=== PATIENT | female | born 1955 | race Caucasian/White ===

== ENCOUNTER 2024-06-30 10:02 | Outpatient (CLI) | payer MEDICARE | END 2024-06-30 10:03 | disposition home or self-care (01) | LOC: NAV RAD 10:02 | PROVIDERS: ATTEND Student in an Organized Health Care Education/Training Program | DX: M25.512 Pain in left shoulder (principal); M19.012 Primary osteoarthritis, left shoulder ==

== ENCOUNTER 2025-06-21 13:33 | Outpatient (CLI) | payer MEDICARE | END 2025-06-21 13:34 | disposition home or self-care (01) | LOC: NAV RAD 13:33 | PROVIDERS: ATTEND Student in an Organized Health Care Education/Training Program | DX: J40 Bronchitis, not specified as acute or chronic (principal) | CPT/HCPCS: 71046 ==